=== PATIENT | female | born 1995 | race Caucasian/White ===

== ENCOUNTER 2018-01-21 03:43 | Emergency (ER) | payer OTHER ==
[2018-01-21] MEDS ORDERED: NITR-105 PO (03:57)
[2018-01-21] MEDS ORDERED: ALB6.7R INH (03:58)
--- NOTE | 2018-01-21 04:10 | ER Report ---
History and Physical Time Seen By MD: 04:07 Hx. of Stated Complaint: PT HAS HX OF UTIS, DIFFERENT SYMPTOMS NOW, PAIN IN LOW MID ABDOMEN, PAIN COMES AND GOES, ON ANTIBIOTIC PRESCRIBED TODAY, GETTING WORSE HPI/ROS CHIEF COMPLAINT: abdominal pain HISTORY OF PRESENT ILLNESS: This is a 22 year old female. She has been having bouts of lower abdominal pain on and off for some time. This pattern goes back a year. The recent pain has been about a week. She has been taking macrobid 100mg daily this week, prescribed by urology. Urology, primary care and her OB/ [employer] have been involved in working up what has been thought to be urinary tract infections during the last year. From the patient's description of events, there have been a few times where it sounds like they were infections, but several times where this was questionable, but I do not have the actual results to review. She has had pain that comes and goes, central to lower abdomen in the suprapubic area. Nothing makes the pain worse or better, and it can stay variable lengths of time. When it comes on it can be severe and make it so she can barely move. Not associated with vomiting. No diarrhea or constipation. Urination with out dysuria or frequency. No cough or shortness of breath. No fevers or chills. No pain in the back or extremities. No rashes. Not associated with eating or drinking. Allergies: Coded Allergies: No Known Drug Allergies (Unverified , 01/21/18) Home Meds Reported Medications Albuterol Sulfate (PROVENTIL HFA) 6.7 Gm Inh, 1-2 PUFF INH 3-4XD, INH 01/21/18 Nitrofurantoin Monohyd/M-Cryst (MACROBID 100 MG CAPSULE) 100 Mg Capsule, 100 MG PO, CAPSULE 01/21/18 Reviewed Nurses Notes: Yes Hx Substance Use Disorder: No Hx Alcohol Use: Yes (OCC) Constitutional Vital Sign - Last 24 Hours 01/21/18 01/21/18 01/21/18 01/21/18 03:52 04:00 04:15 04:30 Temp 97.9 Pulse 91 85 91 84 Resp 16 B/P (MAP) 132/87 Pulse Ox 91 97 95 92 O2 Delivery Room Air 01/21/18 01/21/18 01/21/18 01/21/18 04:45 04:52 05:19 05:30 Pulse 97 90 101 Resp 14 B/P (MAP) 119/80 (93) 124/82 (96) 110/74 (86) Pulse Ox 91 94 96 O2 Delivery Room Air 01/21/18 06:00 Pulse 66 Resp 14 B/P (MAP) 112/72 (85) Pulse Ox 93 O2 Delivery Room Air Physical Exam General Appearance: The patient is alert. No acute distress at this time. Non -toxic in appearance. Eyes: Pupils are equal, round. No pallor, injection or icterus. ENT: Mucous membranes are moist. Normal oral mucosa. Posterior oropharynx is normal. Neck: Supple and non tender. Respiratory: Lungs are clear to auscultation. Cardiovascular: Regular rate and rhythm. No murmurs, gallops or rubs. Normal capillary refill. No edema. Gastrointestinal: Abdomen is soft. Some discomfort with palpation in the suprapubic and periumbilical area, but no other areas of pain. Nondistended. No rebound or guarding. No masses or organomegaly. Normal active bowel sounds. No costovertebral angle tenderness with percussion. Neurological: Alert and oriented x3. Skin: Warm and dry. Musculoskeletal: No tenderness in palpation of the cervical, thoracic and lumbar spine. DIFFERENTIAL DIAGNOSIS: After history and physical exam, differential diagnosis was considered for abdominal pain including but not limited to urinary tract infection, functional bowel problem such as irritable bowel, colitis, constipation Medical Decision Making Data Points Result Diagram: 01/21/18 0454 01/21/18 0454 Laboratory Hematology Test 01/21/18 03:50 01/21/18 04:54 Urine Color Yellow Urine Clarity Clear Urine pH 6.0 pH (4.8-9.5) Urine Specific Bowie 1.011 Urine Protein Negative mg/dL (NEGATIVE) Urine Glucose (UA) Negative mg/dL (NEGATIVE) Urine Ketones Negative mg/dL (NEGATIVE) Urine Blood Negative (NEGATIVE) Urine Nitrite Negative (NEGATIVE) Urine Bilirubin Negative (NEGATIVE) Urine Urobilinogen Negative mg/dL (0.2-1.9) Urine Leukocyte Esterase Trace (NEGATIVE) Urine RBC 1 /HPF (0-2/HPF) Urine WBC 1 /HPF (0-5/HPF) Urine Squamous Epithelial Cells Many /LPF (</=FEW) Urine Bacteria Negative /HPF (NONE-FEW) Urine Mucus None /HPF (NONE-FEW) Red Blood Count 5.18 M/uL (4.17-5.56) Mean Corpuscular Volume 86.4 fL (80.0-96.0) Mean Corpuscular Hemoglobin 29.7 pg (26.0-33.0) Mean Corpuscular Hemoglobin Concent 34.4 g/dL (32.0-36.0) Red Cell Distribution Width 12.4 % (11.5-14.5) Mean Platelet Volume 8.5 fL (7.2-11.1) Neutrophils (%) (Auto) 60.4 % (39.4-72.5) Lymphocytes (%) (Auto) 25.3 % (17.6-49.6) Monocytes (%) (Auto) 10.5 % (4.1-12.4) Eosinophils (%) (Auto) 3.1 % (0.4-6.7) Basophils (%) (Auto) 0.7 % (0.3-1.4) Nucleated RBC Relative Count (auto) 0.0 /100WBC Neutrophils # (Auto) 3.3 K/uL (2.0-7.4) Lymphocytes # (Auto) 1.4 K/uL (1.3-3.6) Monocytes # (Auto) 0.6 K/uL (0.3-1.0) Eosinophils # (Auto) 0.2 K/uL (0.0-0.5) Basophils # (Auto) 0.0 K/uL (0.0-0.1) Nucleated RBC Absolute Count (auto) 0.00 K/uL Sodium Level 138 mmol/L (137-145) Potassium Level 3.7 mmol/L (3.5-5.0) Chloride Level 102 mmol/L (98-107) Carbon Dioxide Level 26 mmol/L (22-31) Blood Urea Nitrogen 9 mg/dl (7-18) Creatinine 0.70 mg/dl (0.52-1.04) Glomerular Filtration Rate Calc > 60.0 Random Glucose 85 mg/dl (75-110) Calcium Level 9.9 mg/dl (8.4-10.2) Total Bilirubin 0.4 mg/dl (0.2-1.3) Aspartate Amino Transf (AST/SGOT) 21 U/L (0-35) Alanine Aminotransferase (ALT/SGPT) 25 U/L (0-56) Alkaline Phosphatase 55 U/L (0-126) Total Protein 6.5 gm/dl (6.3-8.2) Albumin 4.1 g/dl (3.5-5.0) Human Chorionic Gonadotropin, Qual Negative (NEGATIVE) Chemistry Test 01/21/18 03:50 01/21/18 04:54 Urine Color Yellow Urine Clarity Clear Urine pH 6.0 pH (4.8-9.5) Urine Specific Bowie 1.011 Urine Protein Negative mg/dL (NEGATIVE) Urine Glucose (UA) Negative mg/dL (NEGATIVE) Urine Ketones Negative mg/dL (NEGATIVE) Urine Blood Negative (NEGATIVE) Urine Nitrite Negative (NEGATIVE) Urine Bilirubin Negative (NEGATIVE) Urine Urobilinogen Negative mg/dL (0.2-1.9) Urine Leukocyte Esterase Trace (NEGATIVE) Urine RBC 1 /HPF (0-2/HPF) Urine WBC 1 /HPF (0-5/HPF) Urine Squamous Epithelial Cells Many /LPF (</=FEW) Urine Bacteria Negative /HPF (NONE-FEW) Urine Mucus None /HPF (NONE-FEW) White Blood Count 5.5 k/uL (4.5-11.0) Red Blood Count 5.18 M/uL (4.17-5.56) Hemoglobin 15.4 g/dL (12.0-16.0) Hematocrit 44.7 % (34.0-47.0) Mean Corpuscular Volume 86.4 fL (80.0-96.0) Mean Corpuscular Hemoglobin 29.7 pg (26.0-33.0) Mean Corpuscular Hemoglobin Concent 34.4 g/dL (32.0-36.0) Red Cell Distribution Width 12.4 % (11.5-14.5) Platelet Count 195 K/uL (150-450) Mean Platelet Volume 8.5 fL (7.2-11.1) Neutrophils (%) (Auto) 60.4 % (39.4-72.5) Lymphocytes (%) (Auto) 25.3 % (17.6-49.6) Monocytes (%) (Auto) 10.5 % (4.1-12.4) Eosinophils (%) (Auto) 3.1 % (0.4-6.7) Basophils (%) (Auto) 0.7 % (0.3-1.4) Nucleated RBC Relative Count (auto) 0.0 /100WBC Neutrophils # (Auto) 3.3 K/uL (2.0-7.4) Lymphocytes # (Auto) 1.4 K/uL (1.3-3.6) Monocytes # (Auto) 0.6 K/uL (0.3-1.0) Eosinophils # (Auto) 0.2 K/uL (0.0-0.5) Basophils # (Auto) 0.0 K/uL (0.0-0.1) Nucleated RBC Absolute Count (auto) 0.00 K/uL Glomerular Filtration Rate Calc > 60.0 Calcium Level 9.9 mg/dl (8.4-10.2) Total Bilirubin 0.4 mg/dl (0.2-1.3) Aspartate Amino Transf (AST/SGOT) 21 U/L (0-35) Alanine Aminotransferase (ALT/SGPT) 25 U/L (0-56) Alkaline Phosphatase 55 U/L (0-126) Total Protein 6.5 gm/dl (6.3-8.2) Albumin 4.1 g/dl (3.5-5.0) Human Chorionic Gonadotropin, Qual Negative (NEGATIVE) Urinalysis Test 01/21/18 03:50 Urine Color Yellow Urine Clarity Clear Urine pH 6.0 pH (4.8-9.5) Urine Specific Bowie 1.011 Urine Protein Negative mg/dL (NEGATIVE) Urine Glucose (UA) Negative mg/dL (NEGATIVE) Urine Ketones Negative mg/dL (NEGATIVE) Urine Blood Negative (NEGATIVE) Urine Nitrite Negative (NEGATIVE) Urine Bilirubin Negative (NEGATIVE) Urine Urobilinogen Negative mg/dL (0.2-1.9) Urine Leukocyte Esterase Trace (NEGATIVE) Urine RBC 1 /HPF (0-2/HPF) Urine WBC 1 /HPF (0-5/HPF) Urine Squamous Epithelial Cells Many /LPF (</=FEW) Urine Bacteria Negative /HPF (NONE-FEW) Urine Mucus None /HPF (NONE-FEW) Microbiology Microbiology Date/Time Source Procedure Growth Status 01/21/18 03:50 Clean Catch Midstream Ur Urine Culture - Final CONTAMINATED URINE:... Complete ED Course/Re-evaluation ED Course Initially, a urinalysis was obtained as it was felt based on history that urinary tract infection would be most likely however this was fairly unremarkable. A urine culture will be obtained. Labs and abdominal x-ray were obtained Decision to Disposition Date: January 21, 2018 Decision to Disposition Time: 06:04 Depart Departure Latest Vital Signs Vital Signs Date Time Temp Pulse Resp B/P (MAP) Pulse Ox O2 Delivery O2 Flow Rate FiO2 01/21/18 06:00 66 14 112/72 (85) 93 Room Air 01/21/18 03:52 97.9 Impression: Primary Impression: Abdominal pain Condition: Improved Disposition: HOME OR SELF-CARE Patient Instructions: Abdominal Pain (ED) Additional Instructions: Follow-up with Urology as planned. Consider seeing a park superintendent. Consider getting set up with a primary care provider to help guide your workup and specialty appointments. Problem Qualifiers Primary Impression: Abdominal pain Abdominal location: lower abdomen, unspecified Qualified Codes: R10.30 - Lower abdominal pain, unspecified JORGE PARKER MD January 21, 2018 04:10
[2018-01-21 05:05] LABS: PLATELET COUNT, AUTOMATED 195 K/uL (150-450)
--- NOTE | 2018-01-21 05:37 | RADIOLOGY IMAGING REPORT ---
FACILITY: [facility] [place] PATIENT NAME: Liv Mariano : 1995 MR: [id number] V: [id number] EXAM DATE: ORDERING PHYSICIAN: JORGE PARKER TECHNOLOGIST: Location: [facility] [place] Patient: Liv Mariano : 1995 Visit/Account:[id number] Date of Sevice: 01/21/2018 Examination: PA chest with abdomen obstructive series HISTORY: Abdominal pain. FINDINGS: PA view of the chest demonstrates clear lungs. No effusion or pneumothorax is seen. Heart size and me diastinal contours are normal. Supine and upright views of the abdomen demonstrate a normal bowel gas pattern. No evidence of free a ir or air-fluid level. No calcifications overlie the renal contours. IMPRESSION: 1. No radiographic evidence of active disease in the chest. 2. Normal intestinal bowel gas pattern. Report Dictated By: Rakesh Quan at 01/21/2018 5:32 AM Report E-Signed By: Rakesh Quan at 01/21/2018 5:34 AM WSN:[id number]
[2018-01-21 06:00] VITALS: BP 112/72
== END 2018-01-21 06:12 | disposition home or self-care (01) ==
LOC: ER 04:31
DX: R10.30 Lower abdominal pain, unspecified (principal)
CPT/HCPCS: 36415; 74022; 81001; 82040; 82247; 82310; 82374; 82435; 82565; 82947; 84075; 84132; 84155; 84295; 84450; 84460; 84520; 84703; 85025; 87088; 99283